=== PATIENT | female | born 1990 | race Caucasian/White ===

== ENCOUNTER → 2016-10-24 | Outpatient (CLI) | payer BC ==
[2016-10-24 16:07] LABS: URINE APPEARANCE CLEAR (CLEAR); URINE BILIRUBIN NEG (NEG); URINE COLOR YELLOW; URINE NITRITE NEG (NEG); URINE SPECIFIC GRAVITY 1.014 (1.000-1.030); UROBILINOGEN NEG (NEG)
[2016-10-24 16:11] LABS: MANUAL MICROSCOPIC REQUIRED? NO; REVIEW REQ? NO
== END | disposition home or self-care (01) ==
LOC: C.LABSPEC 15:52
PROVIDERS: ATTEND Obstetrics & Gynecology
DX: Z34.01 Encounter for supervision of normal first pregnancy, first trimester (principal)

== ENCOUNTER → 2016-10-31 | Outpatient (CLI) | payer BC ==
[2016-10-31 16:41] LABS: BASO % 0.2 %; BASO ABS # 0.02 K/uL (0-0.2); COMPLETE YES; EOS % 1.2 %; HEMATOCRIT 38.4 % (37-47); IG% 0.2 %; LYMPH % 25.4 %; MEAN CELL VOLUME 85.3 fL (80-100); MEAN CORPUSCULAR HEMOGLOBIN 29.3 pg (25-34); MEAN CORPUSCULAR HGB CONC 34.4 g/dl (32-36); MEAN PLATELET VOLUME 9.7 fL (7.4-10.4); MONO % 7.8 %; NEUT % 65.2 %; PLATELET COUNT 336 K/uL (130-400); WHITE BLOOD COUNT 9.84 K/uL (4.8-10.8)
[2016-11-04 01:44] LABS: CHLAMYDIA TRACH RNA*** NOT DETECTED (NOT DETECTED); GC (NEIS GONORRHOEAE)RNA** NOT DETECTED (NOT DETECTED)
== END | disposition home or self-care (01) ==
LOC: C.LAB1850 15:18
PROVIDERS: ATTEND Obstetrics & Gynecology
DX: Z34.01 Encounter for supervision of normal first pregnancy, first trimester (principal)

== ENCOUNTER → 2016-12-31 | Outpatient (CLI) | payer BC ==
[2016-12-31 18:04] LABS: GTGD 50 Grams
[2017-01-05 14:57] LABS: AFP MULTIPLE OF MEDIAN 1.02; AFPTS GESTATIONAL AGE 16.7 WEEKS; AFPTS INSULIN DEP DIABETIC? NO; AFPTS MATERNAL WT 192 LBS; ALPHA-FETOPROTEIN RACE CAUCASIAN=W; ESTRIOL MULTIPLE OF MEDIAN 1.41; HISTORY OF NTD NO; INHIBIN A 118 PG/ML; INHIBIN A MOM 0.79; REPEAT SAMPLE? NO; hCG MULTIPLE OF MEDIAN 1.28
== END | disposition home or self-care (01) ==
LOC: C.LAB1850 16:56
PROVIDERS: ATTEND Obstetrics & Gynecology
DX: Z34.02 Encounter for supervision of normal first pregnancy, second trimester (principal); Z3A.00 Weeks of gestation of pregnancy not specified

== ENCOUNTER → 2017-03-19 | Outpatient (CLI) | payer BC ==
[2017-03-19 18:30] LABS: URINE APPEARANCE CLEAR (CLEAR); URINE BILIRUBIN NEG (NEG); URINE COLOR YELLOW; URINE EPITHELIAL CELL AUTO 20-30 /lpf (0-5); URINE NITRITE NEG (NEG); URINE PH 6.5 (4.5-7.5); UROBILINOGEN NEG (NEG)
[2017-03-19 18:40] LABS: MANUAL MICROSCOPIC REQUIRED? NO; REVIEW REQ? NO
== END | disposition home or self-care (01) ==
LOC: C.LABSPEC 18:00
PROVIDERS: ATTEND Obstetrics & Gynecology
DX: Z34.03 Encounter for supervision of normal first pregnancy, third trimester (principal)

== ENCOUNTER → 2017-03-19 | Outpatient (CLI) | payer BC ==
[2017-03-19 17:42] LABS: HEMATOCRIT 33.9 % (37-47)
[2017-03-19 18:22] LABS: GTGD 50 Grams
== END | disposition home or self-care (01) ==
LOC: C.LAB1850 15:55
PROVIDERS: ATTEND Obstetrics & Gynecology
DX: Z34.03 Encounter for supervision of normal first pregnancy, third trimester (principal)

== ENCOUNTER → 2017-05-15 | Outpatient (CLI) | payer BC | END | disposition home or self-care (01) | LOC: C.LABSPEC 17:41 | PROVIDERS: ATTEND Obstetrics & Gynecology | DX: Z34.03 Encounter for supervision of normal first pregnancy, third trimester (principal) ==

== ENCOUNTER 2017-06-02 12:16 | Inpatient (IN) | payer BC ==
[~2017-06-02] VITALS: Ht 175.3 cm; Wt 106.4 kg
[2017-06-02 13:37] VITALS: Ht 175.3 cm; Wt 106.4 kg
[2017-06-02] MEDS ORDERED: PRENTAB26 PO (13:39)
[2017-06-02] MEDS ORDERED: LACTATED RINGER'S 1000ML 1,000 ML IV PRN (14:43)
[2017-06-02 15:01] LABS: HEMATOCRIT 35.2 % (37-47); HEMOGLOBIN 12.3 g/dL (12.0-16.0); MEAN CELL VOLUME 82.4 fL (80-100); MEAN CORPUSCULAR HEMOGLOBIN 28.8 pg (25-34); MEAN CORPUSCULAR HGB CONC 34.9 g/dl (32-36); MEAN PLATELET VOLUME 9.9 fL (7.4-10.4); PLATELET COUNT 275 K/uL (130-400); RED CELL DISTRIBUTION WIDTH SD 41.7 fL (36.4-46.3); WHITE BLOOD COUNT 12.77 K/uL (4.8-10.8)
[2017-06-02] MEDS ORDERED: BUPIVACAINE 0.25% 30 ML VIAL ONE (15:19)
[2017-06-02] MEDS ORDERED: FENTANYL CITRATE INJ 50 MCG/1 ML 2 ML VIAL ONE (15:19)
[2017-06-02] MEDS ORDERED: EpHEDrine SULFATE INJ 50 MG/ML AMP ONE (15:19)
[2017-06-02] MEDS ORDERED: FENTANYL 2MCG/ML ROPIV 1.25MG/ML 100ML BAG EPI ONE (15:20)
[2017-06-02] MEDS: LACTATED RINGER'S 1000ML 1,000 ML IV SCH ×2 (15:40→16:01)
[2017-06-02] MEDS ORDERED: NALOXONE HCL INJ 1 MG in SODIUM CHLORIDE 0.9% 1000ML 1,000 ML IV PRN ×4 (16:38)
[2017-06-02] MEDS ORDERED: LACTATED RINGER'S 1000ML 500 ML IV PRN ×2 (16:38→17:04)
[2017-06-02] MEDS ORDERED: EpHEDrine SULFATE INJ 50 MG/ML AMP IV PRN (16:45)
[2017-06-02] MEDS ORDERED: PROMETHAZINE HCL INJ 25 MG in SODIUM CHLORIDE 0.9% 50ML 50 ML IV PRN (16:45)
[2017-06-02] MEDS ORDERED: NALBUPHINE HCL INJ 10 MG/ML AMP IV PRN (16:45)
[2017-06-02] MEDS ORDERED: NALOXONE HCL INJ 0.4 MG/1 ML VIAL/CARP IV PRN (16:45)
[2017-06-02] MEDS ORDERED: ONDANSETRON INJ 2 MG/ML 2 ML VIAL IV PRN (16:45)
[2017-06-02] MEDS ORDERED: DiphenhydrAMINE HCL 50 MG/ML VIAL IV PRN (16:45)
[2017-06-02] MEDS ORDERED: OXYTOCIN 30 UNITS/500ML NSS IV PRN (17:15)
[2017-06-02] MEDS: FENTANYL 2MCG/ML ROPIV 1.25MG/ML 100ML BAG EPI PRN (18:58)
[2017-06-03] MEDS: LACTATED RINGER'S 1000ML 1,000 ML IV SCH (00:09)
[2017-06-03] MEDS: FENTANYL 2MCG/ML ROPIV 1.25MG/ML 100ML BAG EPI PRN (00:31)
[2017-06-03] MEDS ORDERED: LANOLIN OINT EXT PRN (02:15)
[2017-06-03] MEDS ORDERED: ACETAMINOPHEN/CODEINE 300/30MG TAB PO PRN ×2 (02:15)
[2017-06-03] MEDS ORDERED: ACETAMINOPHEN 325 MG TAB PO PRN (02:15)
[2017-06-03] MEDS ORDERED: HYDROCORTISONE ACETATE 25 MG SUPP PR PRN (02:15)
[2017-06-03] MEDS ORDERED: SUPERCREAM 0.870 % 15GM JAR EXT PRN (02:15)
[2017-06-03] MEDS ORDERED: BENZOCAINE 20% AER SPR 82.5 GM CAN EXT PRN (02:15)
[2017-06-03] MEDS ORDERED: DIPHTHERIA/TETANUS/PERTUSSIS 0.5 ML SYR/VIAL IM. ONE (02:15)
[2017-06-03] MEDS ORDERED: OXYTOCIN 30 UNITS/500ML NSS IV PRN (02:15)
[2017-06-03 04:30] VITALS: BP 124/64; PULSE 96
--- NOTE | 2017-06-03 04:49 | Anesthesia Procedure Note ---
Anesthesia Epidural Removal Nt Date & Time Jun 03, 2017 at 04:49 Vital Signs Pain Intensity: 0.0 Notes Mental Status: alert / awake / arousable, participated in evaluation Nausea / Vomiting: adequately controlled Pain: adequately controlled Airway Patency, RR, SpO2: stable & adequate BP & HR: stable & adequate Hydration State: stable & adequate Neuraxial Anesthesia: was administered Anesthetic Complications: no major complications apparent, pt satisfied with anesthetic care Epidural: removed without complications, with tip intact
--- NOTE | 2017-06-03 07:30 | DELIVERY SUMMARY ---
DATE OF OPERATION: 06/03/2017 FINDINGS: Viable male with Apgars of 9 and 10. Baby delivered over a midline second degree laceration. Cord gases and cord blood samples obtained. Placenta delivered spontaneously. Laceration was repaired with 4-0 Vicryl in routine fashion. ESTIMATED BLOOD LOSS: 300 mL. LABOR NOTE: The patient is a 26-year-old 1, para 0 with an EDC of 06/12/2017 at 38+ weeks gestational age. She presented to labor and delivery in active labor. The patient states her contractions began at approximately 0700 hours on the 06/02/2017 and increased in intensity. She then ruptured her membranes with vaginal bleeding. The patient was observed on labor and delivery for 2 hours. Cervical change was noted and she was admitted. The patient's course was remarkable for an incidental finding of a small field liver calcification which was stable in size. She had a negative TORCH titer, negative panorama and a negative quad screen. She declined a maternal medicine consult. Laboratory value for the showed a blood type of A positive, antibody negative, rubella immune, hepatitis B negative, normal 1-hour Glucola x2 and a negative third trimester beta strep culture. Upon admission, the patient was 5-6 cm dilated, 80% effaced and -1 station. Tracing was category 1. The patient was uncomfortable. Anesthesia was consulted and epidural was placed. Following placement of the epidural, the patient had artificial rupture of membranes with clear fluid. There had been no cervical change, contractions at its base and Pitocin augmentation was initiated. Over the next 7 hours, the patient progressed to full dilatation, began her second stage, she pushed for approximately an hour delivering a viable male with description as above. Cord was clamped and cut. Cord gases, cord blood samples were obtained. Placenta was delivered spontaneously. Midline laceration repaired with 4-0 Vicryl in routine fashion. Estimated blood loss 300 mL. Sponge and needle count was correct. I attest to the content of the Intraoperative Record and any orders documented therein. Any exception s are noted below.
[2017-06-03 08:37] VITALS: BP 117/78; PULSE 76; TEMP 37.1
[2017-06-03] MEDS: DOCUSATE SODIUM 100 MG CAP PO SCH ×2 (09:18→19:51)
[2017-06-03] MEDS: FERROUS SULFATE 325 MG TAB PO SCH (09:19)
[2017-06-03] MEDS: PRENATAL VITAMIN TAB PO SCH (09:19)
[2017-06-03] MEDS: IBUPROFEN 600 MG TAB PO PRN ×2 (09:23→19:51)
[2017-06-03 13:01] VITALS: BP 124/82; PULSE 76; TEMP 36.8
[2017-06-03 15:40] VITALS: BP 115/74; PULSE 87; TEMP 37; O2SAT 97
[2017-06-03 19:45] VITALS: BP 114/64; PULSE 89; TEMP 37.2; O2SAT 98
[2017-06-04] MEDS: IBUPROFEN 600 MG TAB PO PRN ×4 (00:35→20:17)
[2017-06-04 00:45] VITALS: BP 100/65; PULSE 76; TEMP 36.9
[2017-06-04 06:46] LABS: HEMATOCRIT 32.3 % (37-47)
--- NOTE | 2017-06-04 06:46 | Progress Note ---
Subjective Jun 04, 2017. Subjective conversation w/ patient, conversation w/ family, physical exam Ambulation: limited ambulation Voiding: no voiding problems Passing Gas: Yes Diet Tolerance: Regular Diet Lochia: Moderate Feeding Type: Breast Feeding (having some difficulty) Pain: Reports laceration pain at 5/10 which improves with meds and rest Comment: Pt seen and examined at bedside; no acute events overnight Review of Systems Constitutional: No fever, No chills Respiratory: No cough, No shortness of breath Cardiac: + edema, No chest pain Breast: No breast pain Abdomen: No pain, No nausea, No vomiting Female : No dysuria no headaches or calf pain reported Objective Vital Signs Date Time Temp Pulse Resp B/P (MAP) Pulse Ox O2 Delivery O2 Flow Rate FiO2 06/04/17 00:45 36.9 76 18 100/65 (77) Room Air 06/04/17 00:45 Room Air 06/03/17 19:45 37.2 89 18 114/64 (81) 98 Room Air 06/03/17 15:40 37.0 87 16 115/74 (88) 97 Room Air 06/03/17 15:40 97 Room Air 06/03/17 13:01 36.8 76 16 124/82 (96) 06/03/17 08:37 37.1 76 18 117/78 (91) Room Air 06/03/17 07:45 Room Air Physical Exam General Appearance: WELL-APPEARING, WD/WN, NO APPARENT DISTRESS Respiratory/Chest: chest non-tender, lungs clear, normal breath sounds Cardiovascular: regular rate, rhythm, no murmur Abdomen: normal bowel sounds, non tender, soft Fundus: Firm, Non-Tender, Relation to Umbilicus (4 cm below) Extremities: normal range of motion, non-tender, normal inspection, no calf tenderness, + pedal edema (1+ bilaterally) Laboratory Results Last 24 Hours Test 06/04/17 06:14 Medications Current Inpatient Medications Medications (Trade) Dose Ordered Sig/Crystal Route Start Time Stop Time Status Last Admin Dose Admin Oxytocin (Pitocin IV) 30 units UD PRN IV 06/03/17 02:15 07/03/17 02:14 Benzocaine (Dermoplast Aero Spr) 1 appln PRN PRN EXT 06/03/17 02:15 07/03/17 02:14 Cocaine HCl (Supercream 0.870% Cr) BID PRN EXT 06/03/17 02:15 06/17/17 02:14 Hydrocortisone Acetate (Anusol Hc Supp) 25 mg BID PRN NM 06/03/17 02:15 07/03/17 02:14 Lanolin (Lanolin Oint) PRN PRN EXT 06/03/17 02:15 07/03/17 02:14 Prenat Multivit/ Cylinder Inspector And Tester/Iron/Folic Ac ( Vitamin Tab) 1 tab DAILY PO 06/03/17 08:00 07/03/17 07:59 06/03/17 09:19 1 TAB Ibuprofen (Motrin Tab) 600 mg Q4H PRN PO 06/03/17 02:15 07/03/17 02:14 06/04/17 00:35 600 MG Acetaminophen (Tylenol Tab) 650 mg Q6H PRN PO 06/03/17 02:15 07/03/17 02:14 Acetaminophen/ Codeine Phosphate (Tylenol w/ Codeine #3 Tab) 1 tab Q4H PRN PO 06/03/17 02:15 07/03/17 02:14 Acetaminophen/ Codeine Phosphate (Tylenol w/ Codeine #3 Tab) 2 tab Q4H PRN PO 06/03/17 02:15 07/03/17 02:14 Bisacodyl (Dulcolax Tab) 5 mg 20 PO 06/04/17 20:00 06/04/17 20:01 Docusate Sodium (coLACE CAP) 100 mg BID PO 06/03/17 08:00 07/03/17 07:59 06/03/17 19:51 100 MG Ferrous Sulfate (Feosol Tab) 325 mg DAILY PO 06/03/17 08:00 07/03/17 07:59 06/03/17 09:19 325 MG Assessment and Plan Post- Day#: 1 Continue Routine Care: 26 yo F G1PO PPD 1 s/p Pt doing well clinically Continue routine care, encourae ambulation, breast feeding, first mom education on breast feeding Pain control with Rx prn Discharge likely tomorrow Resident Physician Supervision Note: I was present with Dr. Devine during the history and exam. I discussed the case with the resident and agree with the findings and plan as documented in the note. Any exceptions or clarifications are listed here: PPD#1 doing well. Plans for home tomorrow. Documented By: Mary Kate Webber Resident Tracking Resident Involvement: Resident Care Provided Care Provided: OB Delivery
--- NOTE | 2017-06-04 06:48 | Discharge Instructions ---
Discharge Instructions Date of Service Jun 04, 2017. Admission Reason for Admission: R/O Labor Discharge Discharge Diagnosis / Problem: s/p Discharge Goals Goal(s): Routine recovery after delivery Medications Continue Dispensed Medications: supercream, dermaplast, tucks, lansinoh Activity Recommendations Activity Limitations: per Instructions/Follow-up section . Instructions / Follow-Up Instructions / Follow-Up ACTIVITY RECOMMENDATIONS: * Gradual return to full activity over the next 2-3 weeks. * No lifting - nothing heavier than baby over the next 2-3 weeks. * Do not engage in vigorous exercise, sexual activity or sports until cleared by your physician. * Do not drive or operate any motorized equipment until cleared by your physician. * You may shower/bathe daily. MEDICATIONS: For discomfort or pain, you may use Acetaminophen (Tylenol), Ibuprofen (Advil), or Naproxen (Aleve) following the package directions. For constipation you may use Colace following the package directions. BREAST CARE: If you are not breast feeding: * Wear a supportive bra 24 hours a day for one to two weeks. * Avoid stimulating your breasts and nipples as much as possible during the first few weeks after delivery. * When taking a shower, have the warm water hit your back, not breasts. * When your breasts feel full, apply ice packs. Usually three to four times a day helps ease the discomfort. * Take a mild pain medication (Tylenol / Motrin) when you are uncomfortable. If breast feeding: * Use breast milk to lubricate nipples. Lansinoh cream may be used for sore nipples. You do not need to remove cream prior to breast feeding. If using a different brand of cream, check the label for directions regarding removal of cream prior to nursing. * Wear a supportive bra. * If having problems with breasts or breast feeding, call a oncology consultant or your health care provider. EPISIOTOMY CARE: After delivery, if you have an episiotomy (stitches), the following steps will ease discomfort and aid healing. * For the first 24 hours after delivery, place ice packs next to your episiotomy to help reduce swelling. * After the first 24 hour-period, sitz baths, either portable or in the tub, are suggested. A shower with a shower arm sprayed over the episiotomy may be comforting. * Vivienne care should be done after each voiding and bowel movement. Squirt warm water from a plastic bottle over the perineum (region of the body between the anus and urinary opening) and pat dry. * Use Dermoplast to ease discomfort. Shake container. Campbell directly over the episiotomy. Place a Tucks on a clean sanitary pad next to your episiotomy. SPECIAL CARE INSTRUCTIONS: When you are discharged from the hospital, it is important for you to follow the instructions listed below: * During the first week at home, you should be able to care for yourself and your baby. In addition, the usual light household activities are encouraged. * Limit your activities to the way you feel. Do not try to clean the house or move furniture. Be sensible. * If you actively engage in sports and have done so up until the time of your delivery, you may resume these activities as soon as you feel able. This may take up to one month or even longer. Use good judgment. * Continue to take your vitamins for at least six weeks after the of your baby. * Your diet need not be limited unless you were on a special diet before your delivery. Breast-feeding mothers need around 2500 calories per day and at least 64-80 ounces of fluid per day (8 to 10 glasses). * You should eat foods from the four major food groups. Crash diets or fad diets are to be avoided. Eating lean meats, fresh fruits and vegetables, low-fat dairy products, high fiber foods and a regular exercise program, will help you get back to your pre- weight without putting your health at risk. * Constipation is sometimes a problem after delivery. Take a mild laxative as needed. If breast feeding, Milk of Magnesia is acceptable to use. You may use a suppository or Fleets enema if no episiotomy. * A daily shower or tub bath is suggested. Be sure to thoroughly and gently dry the perineum. * A bloody vaginal discharge will usually continue until around four weeks post . A small amount of bleeding may continue for as long as six weeks. Vaginal discharge changes from the bright red bleeding after delivery to pink then brownish and finally yellowish-pink before becoming white and disappearing. * Bleeding may increase with activity. Your first period may come in 4-8 weeks. If you are breast feeding, your period may be delayed even longer. * Foreman (sex) can begin whenever both you and your partner feel comfortable and do not have any form of genital infection. It is recommended that you wait at least six weeks for internal and external healing to occur. If you have questions, please talk to your health care practitioner. A condom should be used to prevent infection and . * Foreplay, gentle intercourse and lubrication is very important the first several times to prevent pain. A water-based lubricant such as K-Y jelly or Astroglide may be used. * If you have RH negative blood and your baby is RH positive, you will receive RHOGAM by injection prior to discharge. The nurse will give you a card to keep with you that has the date and place that you received RHOGAM after delivery. * During your care, you had a Rubella screen done to check for the presence of rubella antibodies in your blood. If your test was negative, you will receive a Rubella vaccine prior to discharge. This vaccine may cause a fever, soreness at the injection site and flu-like symptoms. If these symptoms persist, notify your health care practitioner. is not advised for one month after a Rubella vaccine. * Verbalizes understanding of car seat law as reviewed with patient nursing. * Car Seat hand-out given and reviewed with patient by nursing. * Shaken baby information reviewed with patient by nursing. Call you doctor if: * Heavy bleeding (saturating several pads an hour) or passing clots the size of your fist. * A fever >101 degrees F (38.3 degrees C) on two occasions four hours apart and /or chills. * Unusual pain in the pelvic or vaginal areas. * "Baby Blues" lasting longer than two weeks. If you have any questions or concerns, call your health care practitioner at . FOLLOW UP VISIT: * Please call the office at to schedule a 6 week examination. It is important you keep this appointment. It is important for you to make arrangements for either yearly or twice yearly check-ups thereafter. Current Hospital Diet Patient's current hospital diet: Regular OB Diet Discharge Diet Recommended Diet: Regular OB Diet Pending Studies Studies pending at discharge: no Medical Emergencies . Who to Call and When: Medical Emergencies: If at any time you feel your situation is an emergency, please call 911 immediately. . Non-Emergent Contact Non-Emergency issues call your: Senior Instructor . . "Provider Documentation" section prepared by Veronica Devine. .
[2017-06-04 07:00] VITALS: BP 104/77; PULSE 82; TEMP 36.7; O2SAT 97
[2017-06-04] MEDS: PRENATAL VITAMIN TAB PO SCH (08:08)
[2017-06-04] MEDS: FERROUS SULFATE 325 MG TAB PO SCH (08:08)
[2017-06-04] MEDS: DOCUSATE SODIUM 100 MG CAP PO SCH ×2 (08:08→20:17)
[2017-06-04 11:34] VITALS: BP 103/72; PULSE 82; TEMP 36.4; O2SAT 96
[2017-06-04 15:55] VITALS: BP 107/83; PULSE 86; O2SAT 99
[2017-06-04] MEDS ORDERED: BISACODYL 5 MG TABEC PO SCH (20:00)
[2017-06-04 23:45] VITALS: BP 120/78; PULSE 81; TEMP 36.7
[2017-06-05] MEDS: IBUPROFEN 600 MG TAB PO PRN ×2 (00:12→07:27)
--- NOTE | 2017-06-05 05:50 | Progress Note ---
Subjective Jun 05, 2017. Subjective conversation w/ patient, physical exam, lab review Voiding: no voiding problems Diet Tolerance: Regular Diet Lochia: Small Feeding Type: Breast Feeding Objective Vital Signs Date Time Temp Pulse Resp B/P (MAP) Pulse Ox O2 Delivery O2 Flow Rate FiO2 06/04/17 23:45 36.7 81 18 120/78 (92) Room Air 06/04/17 23:45 Room Air 06/04/17 15:55 86 18 107/83 (91) 99 06/04/17 15:55 99 Room Air 06/04/17 11:34 36.4 82 20 103/72 (82) 96 Room Air 06/04/17 07:30 Room Air 06/04/17 07:00 36.7 82 18 104/77 (86) 97 Room Air Physical Exam General Appearance: WELL-APPEARING Abdomen: non tender Fundus: Firm Extremities: no calf tenderness Laboratory Results Last 24 Hours Test 06/04/17 06:14 Hemoglobin 11.0 g/dL Hematocrit 32.3 % Assessment and Plan Post- Day#: 2 Continue Routine Care: Patient is doing well meets discharge criteria no extremity pain reviewed instructions
[2017-06-05 07:15] VITALS: BP 121/73; PULSE 83; TEMP 36.7; O2SAT 98
[2017-06-05] MEDS: PRENATAL VITAMIN TAB PO SCH (07:27)
[2017-06-05] MEDS: DOCUSATE SODIUM 100 MG CAP PO SCH (07:27)
[2017-06-05] MEDS: FERROUS SULFATE 325 MG TAB PO SCH (10:08)
[2017-06-05 10:50] VITALS: BP_DIAS 73; PULSE 83; TEMP 36.7
== END 2017-06-05 10:50 | disposition home or self-care (01) | DRG 775 ==
LOC: C.LD 12:16 → C.OPB 12:16 → C.LD 14:44 → C.OBG 06-03 06:43 → EDSTATUS 06-12 12:23
PROVIDERS: ADMIT Obstetrics & Gynecology; ATTEND Obstetrics & Gynecology
PROC: 0KQM0ZZ Repair Perineum Muscle, Open Approach (ICD-10-PCS; principal; 2017-06-03)
PROC: 10E0XZZ Delivery of Products of Conception, External Approach (ICD-10-PCS; principal; 2017-06-03)
DX: O70.1 Second degree perineal laceration during delivery (principal); Z3A.38 38 weeks gestation of pregnancy; Z37.0 Single live birth

== ENCOUNTER 2018-11-08 07:32 | Inpatient (IN) ==
[2018-11-08] MEDS ORDERED: OXYTOCIN 30 UNITS/500 ML BAG IV PRN ×3 (07:42→17:03)
[2018-11-08 08:11] LABS: Mean Corpuscular Volume 82.5 fL (80-100); Mean Platelet Volume 9.5 fL (7.4-10.4); Platelet Count 281 K/uL (130-400); RDW Coefficient of Variation 14.5 % (11.5-14.5); RDW Standard Deviation 43.6 fL (36.4-46.3); Red Blood Count 4.24 M/uL (4.2-5.4); White Blood Count 11.44 K/uL (4.8-10.8)
[2018-11-08 08:12] LABS: Mean Corpuscular Hgb Conc 34.3 g/dL (32-36)
[2018-11-08] MEDS: LACTATED RINGER'S 1,000 ML IV PRN ×2 (08:53→12:45)
--- NOTE | 2018-11-08 08:56 | Labor Progress Brief Note ---
Date of Service November 08, 2018 Subjective 28yo at 41 (+) weeks GA for post dates induction Assessment & Plan (1) Supervision of normal intrauterine in multigravida: - tracing Cat I - Pitocin per induction protocol - anticipate Physical Exam Gastrointestinal (Abdomen): gravid, vtx, (+) fht's, EFW 8 1/2 lbs Genitourinary: Cervix: 3-4/50/-2, soft, posterior Results & Data Vital Signs (Past 12 Hours) Vital Signs Temp Pulse Resp BP 11/08/18 08:31 36.8 C 20 11/08/18 08:30 82 110/70
[2018-11-08] MEDS ORDERED: ePHEDrine sulfate 50 MG/ML AMP ONE (12:10)
[2018-11-08] MEDS ORDERED: BUPIVACAINE 0.25% 30 ML VIAL ONE (12:10)
[2018-11-08] MEDS ORDERED: fentaNYL 2MCG/ML ROPIV 1.25MG/ML 100 ML BAG EPI ONE (12:11)
[2018-11-08] MEDS ORDERED: fentaNYL citrate 100 MCG/2 ML VIAL ONE (12:11)
--- NOTE | 2018-11-08 13:08 | Anesthesiology Consultation ---
Date of Service November 08, 2018 Assessment & Plan Chart Review Chart Review: Acceptable Risk for Labor Epidural Consults Requested none History Height/Weight Height: 5 ft 9 in Weight: 107.501 kg Allergies Allergy/AdvReac Type Severity Reaction Status Date / Time No Known Allergies Allergy Unverified 11/05/18 10:28 Medications Home Medications Medication Instructions Recorded Confirmed Last Taken docusate sodium [Colace] 100 mg PO DAILY 11/08/18 11/08/18 11/08/18 06:00 vit-iron fum-folic ac 1 tab PO DAILY 11/08/18 11/08/18 11/08/18 06:00 [ Vitamin] Active Medications Generic Name Dose Route Start Last Admin Trade Name Freq PRN Reason Stop Dose Admin Lactated Ringer's 1,000 mls @ 125 mls/hr 11/08/18 08:10 11/08/18 12:45 Lr IV 11/10/18 08:09 999 mls/hr .Q8H PRN Administration L&D Protocol Protocol Oxytocin 30 units in 500 mls @ 7 mls/hr 11/08/18 07:42 11/08/18 11:31 Pitocin IV 11/10/18 07:41 0.42 units/hr .Q24H PRN 7 mls/hr Labor Induction/Augmentation Titration Protocol 0.42 UNITS/HR Past Medical History Medical History History of genital warts History of varicella Past Family History Family History Mother Premature births Multiple gestation Father Kidney stones Hypertension Past Surgical History Surgical History S/P wisdom tooth extraction Social History Smoking Status: Never smoker Hx Alcohol Use: No Hx Substance Use: No substance use type: does not use Physical Exam Vital Signs Last Vital Signs Temp 36.8 C 11/08/18 08:31 Pulse 86 11/08/18 13:06 Resp 20 11/08/18 08:31 BP 129/69 11/08/18 13:06 Pulse Ox 99 11/08/18 13:03 Testing Laboratory Results 11/08/18 08:02
[2018-11-08] MEDS ORDERED: NALBUPHINE HCL INJ 10 MG/ML AMP IV PRN (13:13)
[2018-11-08] MEDS ORDERED: NALOXONE HCL 0.4 MG/1 ML VIAL/CARP IV PRN (13:13)
[2018-11-08] MEDS ORDERED: fentaNYL 2MCG/ML ROPIV 1.25MG/ML 100 ML BAG EPI PRN (13:13)
[2018-11-08] MEDS ORDERED: ePHEDrine sulfate 50 MG/ML AMP IV PRN (13:13)
[2018-11-08] MEDS ORDERED: NALOXONE HCL 1 MG in SODIUM CHLORIDE 0.9% 1000ML 1,000 ML IV PRN (13:13)
[2018-11-08] MEDS ORDERED: DiphenhydrAMINE HCL 50 MG/ML VIAL IV PRN (13:13)
--- NOTE | 2018-11-08 14:06 | History & Physical Report ---
Date of Service November 08, 2018 Assessment & Plan (1) : Initiated Pitocin induction. Anesthesia consulted - placed epidural. patient in (or approaching active labor). continue to monitor Present on Admission?: Yes (2) Supervision of normal intrauterine in multigravida: Present on Admission?: Yes (3) Short interval between pregnancies affecting , antepartum: Present on Admission?: Yes History of Present Illness Chief Complaint: Here for induction of labor for post-dates gestation (41 weeks) 28 yo at 41 weeks gestation (dating via LMP) presents to labor and delivery for post-dates induction. No complications with this . Has been attending appointments with MNP. Having regular contractions. + movement. No amniotic fluid loss or vaginal bleeding. OB Labs: Blood Type A Positive 04/01/18 Antibody Screen NEGATIVE 04/01/18 Hemoglobin 11.5 g/dL (12.0-16.0) L 08/11/18 Hematocrit 32.9 % (37-47) L 08/11/18 Mean Corpuscular Volume 85.9 fL (80-100) 04/01/18 Platelet Count 333 K/uL (130-400) 04/01/18 Rubella IgG Antibody Immune (Immune) 04/01/18 Rapid Plasma Reagin Nonreactive (Nonreactive) 04/01/18 Hepatitis B Surface Antigen Neg (Neg) 04/01/18 HIV (1&2) Ab and P24 Ag, 4th Gener Neg (Neg) 04/01/18 Glucose 1 Hour 50 gm Load 147 mg/dl (70-130) H 08/11/18 Glucose 1 Hour 110 mg/dl (70-130) 03/19/17 OB Optional Labs: Chlamydia trachomatis RNA NOT DETECTED (NOT DETECTED) 04/01/18 Neisseria gonorrhoeae RNA NOT DETECTED (NOT DETECTED) 04/01/18 Allergies Allergy/AdvReac Type Severity Reaction Status Date / Time No Known Allergies Allergy Unverified 11/05/18 10:28 Home Medications Home Medications Medication Instructions Recorded Confirmed Type docusate sodium [Colace] 100 mg PO DAILY 11/08/18 11/08/18 History vit-iron fum-folic ac 1 tab PO DAILY 11/08/18 11/08/18 History [ Vitamin] Patient History Medical History History of genital warts History of varicella Surgical History S/P wisdom tooth extraction Family History Mother Premature births Multiple gestation Father Kidney stones Hypertension Social History Preferred Language: Georgian Psych Arnp Required: No Beliefs That Will Affect Care: None marital status: Current Living Situation: Spouse Other Information That Helps Us Care for You: No Feels Safe at Home: Yes Safety Concerns: Feels Safe At This Time Smoking Status: Never smoker Hx Alcohol Use: No Hx Substance Use: No Review of Systems General: No fever, chills, sweats HEENT: + headache no blurry vision Pulm: No shortness of breath, cough, wheeze CV: No chest pain, palpitations, chest pressure. Breast: No breast pain and discharge GI: no constipation/diarrhea, nausea/vomiting : No dysuria, burning with urination Physical Exam Physical Exam: General: Alert, oriented. No acute distress. Cardiac: Regular rate and rhythm, S1 and S2 appreciated. functional murmur appreciated (cresendo-decresendo) 2/6. No rubs/gallops. Respiratory: Clear to auscultation anterior and posteriorly, no wheezes/rales/rhonchi/crackles. No accessory muscle use. Symmetrical chest rise. Abdomen: Soft, nontender, nondistended. Hypoactive bowel sounds throughout. Uterus: gravid. fetus in vertex position. Cervical exam: [5-6cm/100/-2], soft and posterior Lower Extremities: No lower extremity edema. No calf pain on compression. Results & Data Vital Signs (Past 12 Hours) Vital Signs Temp Pulse Resp BP Pulse Ox 11/08/18 13:48 75 96 11/08/18 13:43 66 100 11/08/18 13:39 76 117/68 11/08/18 13:38 70 96 11/08/18 13:33 69 97 11/08/18 13:28 79 97 11/08/18 13:23 73 115/67 100 11/08/18 13:18 74 120/66 100 11/08/18 13:13 74 100 11/08/18 13:12 77 120/66 11/08/18 13:10 76 126/77 08/12/19 13:08 73 127/73 100 11/08/18 13:06 86 129/69 11/08/18 13:04 75 131/68 11/08/18 13:03 88 99 11/08/18 12:58 66 100 11/08/18 12:53 77 100 11/08/18 12:48 82 100 11/08/18 12:08 66 120/61 11/08/18 10:21 68 120/76 11/08/18 08:56 79 120/73 11/08/18 08:31 36.8 C 20 11/08/18 08:30 82 110/70 Monitoring External Monitor minimal variability, 1 10x10 accelerations in 20 min interval, early decelerations present, baseline HR 140s] Supervising Physician Co-Signing Physician Notes Resident Physician Supervision Note: I interviewed and examined the patient. Discussed with Dr. Gomez and agree with findings and plan as documented in the note. Any exceptions or clarifications are listed here: 28yo @ 41 06/03 for IOL for post-dates, uncomplicated . Has had pitocin, epidural, AROM. Anticipate . Documented By: Mary Kate Webber DO Resident Activity Tracking Resident Involvement: Resident Care Provided Care Provided: Adult Hospital Medicine
--- NOTE | 2018-11-08 14:22 | Obstetrical Progress Note ---
Date of Service November 08, 2018 Subjective Comfortable with epidural. Some right-sided pain with ctx. FHT Cat 1 [place] Q 2 SVE 6/100/-1, AROM for clear blood-tinged fluid. Anticipate . Results & Data Vital Signs (Past 12 Hours) Vital Signs Temp Pulse Resp BP Pulse Ox 11/08/18 14:08 72 97 11/08/18 14:03 76 100 11/08/18 13:58 91 H 100 11/08/18 13:55 81 113/70 11/08/18 13:53 76 96 11/08/18 13:48 75 96 11/08/18 13:43 66 100 11/08/18 13:39 76 117/68 11/08/18 13:38 70 96 11/08/18 13:33 69 97 11/08/18 13:28 79 97 11/08/18 13:23 73 115/67 100 11/08/18 13:18 74 120/66 100 11/08/18 13:13 74 100 11/08/18 13:12 77 120/66 11/08/18 13:10 76 126/77 11/08/18 13:08 73 127/73 100 11/08/18 13:06 86 129/69 11/08/18 13:04 75 131/68 11/08/18 13:03 88 99 11/08/18 12:58 66 100 11/08/18 12:53 77 100 11/08/18 12:48 82 100 11/08/18 12:08 66 120/61 11/08/18 10:21 68 120/76 11/08/18 08:56 79 120/73 11/08/18 08:31 36.8 C 20 11/08/18 08:30 82 110/70 PG Care Time/CCT Total # of Minutes Spent Total Time Spent with Patient: Total time spent is greater than 50% in coordination of care (as documented) at patient's floor/unit and/or counseling patient:
--- NOTE | 2018-11-08 15:59 | Obstetrical Progress Note ---
Date of Service November 08, 2018 Subjective Feeling uncomfortable with ctx, not yet feeling urge to push. FHT 130s, mod jane, +accels. +variable and early decels with ctx. [place] Q 2min SVE 8-9/100/+1 Continue to monitor. Anticipate . Results & Data Vital Signs (Past 12 Hours) Vital Signs Temp Pulse Resp BP Pulse Ox 11/08/18 15:54 81 123/74 11/08/18 15:52 79 100 11/08/18 15:48 79 98 11/08/18 15:43 76 100 11/08/18 15:40 71 130/80 11/08/18 15:38 79 100 11/08/18 15:33 78 100 11/08/18 15:28 85 100 11/08/18 15:25 79 134/78 11/08/18 15:23 83 99 11/08/18 15:18 77 97 11/08/18 15:13 77 100 11/08/18 15:09 78 135/74 11/08/18 15:08 73 99 11/08/18 15:03 84 97 11/08/18 14:58 78 98 11/08/18 14:54 75 125/71 11/08/18 14:53 76 100 11/08/18 14:48 70 98 11/08/18 14:43 85 98 11/08/18 14:39 67 125/74 11/08/18 14:38 77 98 11/08/18 14:33 81 94 11/08/18 14:28 72 99 11/08/18 14:25 83 121/67 11/08/18 14:23 80 95 11/08/18 14:18 77 96 11/08/18 14:13 70 99 11/08/18 14:09 80 113/69 11/08/18 14:08 72 97 11/08/18 14:03 76 100 11/08/18 13:58 91 H 100 11/08/18 13:55 81 113/70 11/08/18 13:53 76 96 11/08/18 13:48 75 96 11/08/18 13:43 66 100 11/08/18 13:39 76 117/68 11/08/18 13:38 70 96 11/08/18 13:33 69 97 11/08/18 13:28 79 97 11/08/18 13:24 36.9 C 20 11/08/18 13:23 73 115/67 100 11/08/18 13:18 74 120/66 100 11/08/18 13:13 74 100 11/08/18 13:12 77 120/66 11/08/18 13:10 76 126/77 11/08/18 13:08 73 127/73 100 11/08/18 13:06 86 129/69 11/08/18 13:04 75 131/68 11/08/18 13:03 88 99 11/08/18 12:58 66 100 11/08/18 12:53 77 100 11/08/18 12:48 82 100 11/08/18 12:08 66 120/61 11/08/18 10:21 68 120/76 11/08/18 08:56 79 120/73 11/08/18 08:31 36.8 C 20 11/08/18 08:30 82 110/70 PG Care Time/CCT Total # of Minutes Spent Total Time Spent with Patient: Total time spent is greater than 50% in coordination of care (as documented) at patient's floor/unit and/or counseling patient:
--- NOTE | 2018-11-08 16:40 | Delivery Summary ---
Vaginal Delivery Summary Date of Service November 08, 2018 Vaginal Delivery Summary Vaginal Delivery Summary: Pre-delivery diagnoses: 28yo @ 41 3/, IOL for postdates Post-delivery diagnoses: same Procedure: spontaneous vaginal delivery, repair of 1st degree perineal laceration Surgeon: Mary Kate Webber DO Complications: none Findings: Viable male . Apgars: 8/9. Weight pending, please see nursery records Estimated blood loss: 300ml Description of delivery: The patient progressed to complete with epidural anesthesia. She then began to push. She spontaneously vaginally delivered a viable from the cephalic presentation. The head delivered in ROP position. The anterior shoulder delivered, followed by the posterior shoulder, followed by the body. No nuchal cord was noted. The baby was placed on mother's abdomen and a spontaneous cry was heard. Delayed cord clamping was employed, and the cord was doubly clamped and cut. Cord blood was obtained. The placenta was delivered spontaneously intact with a 3-vessel cord - marginal insertion of cord. The uterus and vagina were swept of clots and debris. IV pitocin was given. The uterus became firm. The cervix, vagina, and perineum were inspected and a 1st degree perineal laceration was noted and repaired in standard fashion with 3-0 vicryl. Excellent hemostasis was observed. The mother and baby are recovering in stable and good condition in the room. Sponge and instrument counts were correct x 2. DO SAPPHIRE Garcia
[2018-11-08] MEDS ORDERED: DIPHTHERIA/TETANUS/PERTUSSIS 0.5 ML SYR/VIAL IM ONE (17:03)
[2018-11-08] MEDS ORDERED: ACETAMINOPHEN 325 MG TAB PO PRN (17:03)
[2018-11-08] MEDS ORDERED: BENZOCAINE 20% AER SPR 82.5 GM CAN EXT PRN (17:03)
[2018-11-08] MEDS ORDERED: HYDROCORTISONE ACETATE 25 MG SUPP PR PRN (17:03)
[2018-11-08] MEDS ORDERED: SUPERCREAM 0.870% 15 GM JAR EXT PRN (17:03)
[2018-11-08] MEDS ORDERED: OXYCODONE/ACETAMINOPHEN 5mg/325mg TAB PO PRN (17:03)
[2018-11-08] MEDS: DOCUSATE SODIUM 100 MG CAP PO SCH (20:28)
[2018-11-09] MEDS: IBUPROFEN 600 MG TAB PO PRN ×3 (02:59→17:12)
--- NOTE | 2018-11-09 06:32 | Obstetrical Progress Note ---
Date of Service <Tamy Gomez MD - Last Filed: 11/09/18 07:04> November 09, 2018 Assessment & Plan <Tamy Gomez MD - Last Filed: 11/09/18 07:04> (1) Status post vaginal delivery: Katerine is a 28 yo on PPD 1 after - GBS - , Blood Type A+, Rubella immune -Vitals reviewed and WNL (Tmax 37.0) -patient is doing clinically well Discharge instructions reviewed. Ready for discharge. - After discharge will have [address] Webber Subjective <Tamy Gomez MD - Last Filed: 11/09/18 07:04> Ambulation: ambulating normally Voiding: no voiding problems Passing Gas:: Yes Diet Tolerance:: regular diet Lochia:: Moderate Feeding Type:: breast feeding examined at bedside; notes increased cramping when Physical Exam <Tamy Gomez MD - Last Filed: 11/09/18 07:04> General Appearance: Alert, oriented. No acute distress. Cardiac: Regular rate and rhythm, S1 and S2 appreciated. No murmurs/rubs/gallops. Respiratory: Clear to auscultation anterior and posteriorly, no wheezes/rales/rhonchi/crackles. No accessory muscle use. Symmetrical chest rise. Abdomen: Soft, nontender, nondistended. Normoactive bowel sounds throughout. Uterus: Uterine fundus firm, palpable 1 cm below umbilicus. Lower Extremities: No lower extremity edema. No calf pain on compression. Results & Data <Tamy Gomez MD - Last Filed: 11/09/18 07:04> Vital Signs (Past 12 Hours) Vital Signs Temp Pulse Pulse Resp BP BP Pulse Ox 11/09/18 03:05 36.8 C 88 16 126/77 98 11/08/18 23:00 36.8 C 84 16 103/66 97 11/08/18 19:25 37 C 84 16 116/70 96 11/08/18 18:37 86 122/66 <Mary Kate Webber DO - Last Filed: 11/09/18 08:25> Co-Signing Physician Notes Resident Physician Supervision Note: I was present with Dr. Gomez during the history and exam. I discussed the case with the resident and agree with the findings and plan as documented in the note. Any exceptions or clarifications are listed here: PPD#1 doing well. Would like discharge today. Instructions reviewed. RTO 6wPP. Documented By: Mary Kate Webber, Resident Activity Tracking <Tamy Gomez MD - Last Filed: 11/09/18 07:04> Resident Involvement: Resident Care Provided Care Provided: Adult Hospital Medicine
[2018-11-09 06:57] LABS: Hemoglobin 11.8 g/dL (12.0-16.0)
[2018-11-09] MEDS ORDERED: PRENATAL VITAMIN 1 TAB PO SCH (08:00)
[2018-11-09] MEDS: DOCUSATE SODIUM 100 MG CAP PO SCH (08:29)
[2018-11-09] MEDS ORDERED: NON-FORMULARY MEDICATION (Prenatal Vit-Iron Fum-Folic Ac [Prenatal Vitamin] 1 TAB) PO SCH (09:00)
[2018-11-09 13:10] VITALS: TEMP 97.9
[2018-11-09 17:00] VITALS: BP 112/73; PULSE 75; O2SAT 98
[2018-11-09] MEDS ORDERED: BISACODYL 5 MG TABEC PO SCH (20:00)
[2018-11-10] MEDS ORDERED: BISACODYL 10 MG SUPP PR PRN
== END 2018-11-09 18:30 | disposition home or self-care (01) | DRG 807 ==
LOC: 4S1 07:32 → 4S2 19:05

== ENCOUNTER 2021-10-18 01:52 | Inpatient (IN) ==
[2021-10-18] MEDS ORDERED: OXYTOCIN 30 UNITS/500 ML BAG IV PRN ×2 (05:07→07:31)
[2021-10-18] MEDS ORDERED: PENICILLIN G POTASSIUM 6 MU in DEXTROSE 5% 250 ML IV STA (05:07)
[2021-10-18] MEDS ORDERED: fentaNYL citrate 100 MCG/2 ML VIAL ONE (05:40)
[2021-10-18] MEDS ORDERED: ePHEDrine sulfate 50 MG/ML AMP ONE (05:40)
[2021-10-18] MEDS ORDERED: SODIUM CHLORIDE 0.9% INJ 10 ML VIAL ONE (05:40)
[2021-10-18] MEDS ORDERED: BUPIVACAINE 0.25% 30 ML VIAL ONE (05:41)
[2021-10-18] MEDS ORDERED: fentaNYL 2MCG/ML ROPIVACAINE 1.25MG/ML 100 ML BAG EPI ONE (05:41)
[2021-10-18] MEDS ORDERED: LIDOCAINE 2%/EPINEPHRINE 1:200,000 20 ML SDV ONE (05:41)
[2021-10-18 05:50] LABS: Hematocrit (blood only) 35.2 % (34.1-44.9); Hemoglobin 11.9 g/dl (12.0-16.0); Mean Corpuscular Hemoglobin 28.1 pg (25.0-34.0); Mean Corpuscular Hgb Conc 33.8 g/dL (32.0-36.0); Mean Platelet Volume 9.9 fL (9.4-12.3); Platelet Count 282 K/uL (130-400); RDW Coefficient of Variation 14.4 % (11.5-14.5); RDW Standard Deviation 42.7 fL (36.4-46.3); Red Blood Count 4.24 M/uL (3.93-5.22); White Blood Count 12.98 K/ul (4.8-10.8)
[2021-10-18] MEDS: LACTATED RINGER'S 1,000 ML IV PRN ×2 (05:54→06:35)
--- NOTE | 2021-10-18 06:26 | History & Physical Report ---
Date of Service October 18, 2021 Assessment & Plan (1) Group B streptococcal infection during : (2) Gestational diabetes mellitus (GDM) affecting : (3) Normal labor: Plan admit for labor. Desires epidural so will place. pcn for gbs positive. Fetus overall category one, rare variable for category two. Anticipate . Monitor sugars. Admission and Anticipated Discharge Date Admission Date: October 18, 2021 History of Present Illness Chief Complaint: contractions Primary Care Provider: Delgado Okeefe DO Patient is a 31yowf with iup at 39 6/7 weeks who presents to labor and delivery complaining of contractions. no lof/vb. +FM. hx of A1gdm, last AC 12%. Sugars have been well controlled. and Delivery Plans Flu shot given 03/11/21 SB GDM wk glucola *Begin monthly AC Us's @24wks GBs Positive *Treat in labor OB Labs: Blood Type A Positive 03/11/21 Antibody Screen NEGATIVE 03/11/21 Hemoglobin 11.3 g/dL (12.0-16.0) L 08/01/21 Hematocrit 34.2 % (37-47) L 08/01/21 Mean Corpuscular Volume 85.8 fL (80-100) 03/11/21 Platelet Count 369 K/uL (130-400) 03/11/21 Rubella IgG Antibody Immune (Immune) 03/11/21 Rapid Plasma Reagin Nonreactive (Nonreactive) 03/11/21 Hepatitis B Surface Antigen Neg (Neg) 03/11/21 Hepatitis C Antibody Neg (Neg) 03/11/21 HIV (1&2) Ab and P24 Ag, 4th Gener Neg (Neg) 03/11/21 Glucose 1 Hour 50 gm Load 142 mg/dl (70-130) H 08/01/21 Maternal Serum Alpha Fetoprotein 26.4 ng/mL 05/06/21 OB Optional Labs: Chlamydia trachomatis RNA NOT DETECTED (NOT DETECTED) 03/11/21 Neisseria gonorrhoeae RNA NOT DETECTED (NOT DETECTED) 03/11/21 Thyroid Stimulating Hormone (TSH) 0.475 uIu/ml (0.300-4.500) 03/26/19 Alpha Fetoprotein Triple Screen SEE NOTE 05/06/21 Alpha Fetoprotein 31.0 NG/ML 12/31/16 low risk panorama afp neg gbs pos Allergies Allergy/AdvReac Type Severity Reaction Status Date / Time No Known Allergies Allergy Verified 10/16/21 13:58 Home Medications Medication Instructions Recorded Confirmed Type docusate sodium 100 mg capsule 100 mg PO DAILY PRN 03/07/21 10/16/21 History (Dulcolax Stool Softener (docusate)) prenat.vits,ta,[id number] 1 tab PO DAILY 03/07/21 10/16/21 History acetone (urine) test (Ketone Urine #50 ea 08/22/21 10/16/21 Rx Test) blood sugar diagnostic (OneTouch #150 ea 08/22/21 10/16/21 Rx Verio test strips) lancets 33 gauge (OneTouch Delica #150 ea 08/22/21 10/16/21 Rx Lancets) Patient History Medical History Family history of basal cell carcinoma (BCC) History of genital warts History of varicella Short interval between pregnancies affecting , antepartum Surgical History S/P wisdom tooth extraction Family History Mother Premature births Multiple gestation Father Kidney stones Hypertension Myocardial infarction Other Diabetes Denies family history of Ovarian cancer Prostate cancer Breast cancer Colorectal cancer Social History Smoking Status: Never smoker Second Hand Exposure: No; Hx Alcohol Use: No Hx Substance Use: No Preferred Language: Kinyarwanda Communication Ability: Effective Visual Impairment: No Limitations Hearing Ability: Normal Supervisor Word Processing Required: No Beliefs That Will Affect Care: None marital status: marital status details: Corey (31) [phone] Current Living Situation: Spouse current occupational status: employed current occupation: Teacher. How many Children do You have: 2 Feels Safe at Home: Yes Childhood Exposure to Second-Hand Smoke: No caffeine: Yes during the past year weight has: remained stable Dental Care, Regularly: Yes Physical Activity Frequency: 1-2 Times per Week Seatbelt Use: always Sunscreen Use: Yes Assistive Devices: None OB History Past Pregnancies Del. Date GA wks Lbr Lgth wt Sex Type del Anes Place Del Prov ? Comment 06/03/17 38 8lb 10oz M Epid [facility] Dr. Bui No 11/08/18 41 7lb 13oz M Epid [facility] Dr. Akbar Sands [employer] History noncontributory Physical Exam Constitutional: WD/WN, vitals as above Gastrointestinal (Abdomen): soft, gravid, nt Psychiatric: A+Ox3, euthymic affect Genitourinary: cx--initially changed to 4-5cm by nursing. toco--q2-4min efm--13-s with mod variability, accels to 160s, rare variable decel Results & Data ([facility]) Vital Signs (Past 12 Hours) Vital Signs Temp Pulse Resp BP O2 Del Method 10/18/21 05:46 36.5 C 16 Room Air 10/18/21 03:37 18 10/18/21 02:09 36.6 C 16 Room Air 10/18/21 02:17 36.6 C 67 16 124/79 10/18/21 05:45 56 L 126/73 10/18/21 02:09 36.6 C 67 16 124/79 Coding Level of Care Code None Diagnoses Group B streptococcal infection during O98.819; B95.1 Gestational diabetes mellitus (GDM) affecting O24.419 Normal labor O80; Z37.9
--- NOTE | 2021-10-18 06:55 | Anesthesiology Consultation ---
Date of Service October 18, 2021 Assessment & Plan Chart Review Chart Review: Acceptable Risk for Labor Epidural Consults Requested none History Height/Weight Height: 5 ft 9 in Weight: 106.594 kg Allergies Allergy/AdvReac Type Severity Reaction Status Date / Time No Known Allergies Allergy Verified 10/16/21 13:58 Medications Home Medications Medication Instructions Recorded Confirmed Last Taken docusate sodium 100 mg capsule 100 mg PO DAILY PRN 03/07/21 10/16/21 Unknown (Dulcolax Stool Softener (docusate)) prenat.vits,ta,[id number] 1 tab PO DAILY 03/07/21 10/16/21 Unknown acetone (urine) test (Ketone Urine #50 ea 08/22/21 10/16/21 Unknown Test) blood sugar diagnostic (OneTouch #150 ea 08/22/21 10/16/21 Unknown Verio test strips) lancets 33 gauge (OneTouch Delica #150 ea 08/22/21 10/16/21 Unknown Lancets) Active Medications Generic Name Dose Route Start Last Admin Trade Name Freq PRN Reason Stop Dose Admin Lactated Ringer's 1,000 mls @ 125 mls/hr 10/18/21 05:07 10/18/21 06:35 Lr IV 10/20/21 05:06 125 mls/hr .Q8H PRN Administration L&D Protocol Protocol Past Medical History Medical History Family history of basal cell carcinoma (BCC) History of genital warts History of varicella Short interval between pregnancies affecting , antepartum Past Family History Family History Mother Premature births Multiple gestation Father Kidney stones Hypertension Myocardial infarction Other Diabetes Denies family history of Ovarian cancer Prostate cancer Breast cancer Colorectal cancer Past Surgical History Surgical History S/P wisdom tooth extraction Social History Smoking Status: Never smoker Hx Alcohol Use: No Hx Substance Use: No substance use type: does not use Physical Exam Vital Signs Last Vital Signs Temp 36.5 C 10/18/21 05:46 Pulse 88 10/18/21 06:52 Resp 16 10/18/21 05:46 BP 148/78 H 10/18/21 06:52 Pulse Ox 100 10/18/21 06:49 O2 Del Method 10/18/21 05:46 Testing Laboratory Results 10/18/21 05:41
[2021-10-18] MEDS ORDERED: ePHEDrine sulfate 50 MG/ML AMP IV PRN (07:01)
[2021-10-18] MEDS ORDERED: NALBUPHINE HCL INJ 10 MG/ML AMP IV PRN (07:01)
[2021-10-18] MEDS ORDERED: NALOXONE HCL 0.4 MG/1 ML VIAL/CARP IV PRN (07:01)
[2021-10-18] MEDS ORDERED: NALOXONE HCL 1 MG in SODIUM CHLORIDE 0.9% 1000ML 1,000 ML IV PRN (07:01)
[2021-10-18] MEDS ORDERED: diphenhydrAMINE 50 MG/ML VIAL IV PRN (07:01)
[2021-10-18] MEDS ORDERED: fentaNYL 2MCG/ML ROPIVACAINE 1.25MG/ML 100 ML BAG EPI PRN (07:01)
--- NOTE | 2021-10-18 07:08 | Labor Progress Brief Note ---
Date of Service October 18, 2021 Subjective got some relief from epidural but feeling pressure. Assessment & Plan (1) Normal labor: (2) Group B streptococcal infection during : Plan dose one pcn given. anticipate soon. fetus overall reassuring. Admission and Anticipated Discharge Date Admission Date: October 18, 2021 Physical Exam Physical Exam: cx--ant lip/c/0 toco--q2-3min efm--110 with mod variabiltiy, variables with contractions. Results & Data ([facility]) Vital Signs (Past 12 Hours) Vital Signs Temp Pulse Resp BP Pulse Ox O2 Del Method 10/18/21 05:46 36.5 C 16 Room Air 10/18/21 03:37 18 10/18/21 02:09 36.6 C 16 Room Air 10/18/21 02:17 36.6 C 67 16 124/79 10/18/21 07:04 100 10/18/21 07:04 111 H 10/18/21 07:03 114 H 10/18/21 07:03 142/71 H 10/18/21 06:59 100 10/18/21 06:59 89 10/18/21 06:57 146/64 H 10/18/21 06:54 100 10/18/21 06:54 88 10/18/21 06:52 88 10/18/21 06:52 148/78 H 10/18/21 06:49 73 100 10/18/21 06:48 71 137/71 10/18/21 06:44 98 10/18/21 06:44 69 10/18/21 06:44 68 129/60 10/18/21 06:43 77 151/99 H 10/18/21 06:39 99 H 100 10/18/21 06:37 95 H 137/81 10/18/21 06:34 71 99 10/18/21 06:32 71 133/85 10/18/21 06:29 76 100 10/18/21 06:24 59 L 100 10/18/21 05:45 56 L 126/73 10/18/21 02:09 36.6 C 67 16 124/79 Coding Level of Care Code None Diagnoses Normal labor O80; Z37.9 Group B streptococcal infection during O98.819; B95.1
[2021-10-18] MEDS ORDERED: bisacodyL 10 MG SUPP PR PRN (07:31)
[2021-10-18] MEDS ORDERED: IBUPROFEN 600 MG TAB PO PRN (07:31)
[2021-10-18] MEDS ORDERED: ACETAMINOPHEN 325 MG TAB PO PRN (07:31)
[2021-10-18] MEDS ORDERED: HYDROCORTISONE ACETATE 25 MG SUPP PR PRN (07:31)
[2021-10-18] MEDS ORDERED: DIPHTHERIA/TETANUS/PERTUSSIS 0.5 ML SYR/VIAL IM ONE (07:31)
[2021-10-18] MEDS ORDERED: oxyCODONE/ACETAMINOPHEN 5mg/325mg TAB PO PRN (07:31)
[2021-10-18] MEDS ORDERED: BENZOCAINE 20% AER SPR 82.5 GM CAN EXT PRN (07:31)
--- NOTE | 2021-10-18 07:39 | Delivery Summary ---
Vaginal Delivery Summary Date of Service October 18, 2021 Vaginal Delivery Summary and 1st Degree LAC Pre-operative Diagnosis: at 39 weeks active labor gbs positive A1gdm Post-operative Diagnosis: same Procedure: epidural pcn prophylaxis arom first degree laceration and repair EBL: 100cc Anesthesia: epidural Procedure: The patient presented to labor and delivery and after walking made cervical change. She then was admitted, got pcn, and epidural. The quickly found to be c/c/+1. arom done for clear fluid. The patient pushed for 3 contractions to deliver a viable female infant in rop position. The was then delivered without difficulty. The baby was vigorous. The nose and mouth were again bulb suctioned and the was placed in the maternal abdomen for drying and attention. Cord was clamped and cut at at one minute of life. Cord blood and segment obtained. Placenta delivered spontaneous, intact with a three vessel cord. Cervix/sulci/rectum were intact. A first degree perineal laceration was repaired in the normal standard fashion. Hemostasis obtained with dilute pitocin and fundal massage. Apgars were 8/9. Mother and baby doing well at the end of the delivery. [facility] [place]aginal Delivery Charge Delivery Type Details: and 1st Degree LAC
[2021-10-18] MEDS ORDERED: PENICILLIN G POTASSIUM 3 MU in DEXTROSE 5% 100 ML IV PRN (08:07)
[2021-10-18] MEDS: DOCUSATE SODIUM 100 MG CAP PO SCH ×2 (08:40→20:53)
[2021-10-18] MEDS: PRENATAL VITAMIN 1 TAB PO SCH (08:40)
--- NOTE | 2021-10-18 10:23 | Anesthesia Procedure Note ---
Date of Service October 18, 2021 Anesthesia Post Epidural Note Vital Signs Vital Signs: Temp Pulse Resp BP Pulse Ox O2 Del Method 36.7 C 70 18 133/68 88 L 10/18/21 09:20 10/18/21 09:20 10/18/21 09:20 10/18/21 09:20 10/18/21 07:20 10/18/21 07:18 Pain Intensity Bilateral Lower Abdomen: Pain Intensity: 0 Notes Mental Status: alert / awake / arousable and participated in evaluation Nausea / Vomiting: adequately controlled Pain: adequately controlled Airway Patency, RR, SpO2: stable & adequate BP & HR: stable & adequate Hydration State: stable & adequate Neuraxial Anesthesia: was administered and sensory block is resolving Anesthetic Complications: no major complications apparent and Pt Satisfied with anesthetic care Epidural: Removed without complications and With tip intact
--- NOTE | 2021-10-19 06:06 | Obstetrical Progress Note ---
Date of Service <Leonor Nava - Last Filed: 10/19/21 06:42> October 19, 2021 Assessment & Plan <Leonor Nava - Last Filed: 10/19/21 06:42> (1) Status post vaginal delivery: Plan continue OOB, ambulation, diet as tolerated <Ezio Fay MD - Last Filed: 10/19/21 08:07> (1) Status post vaginal delivery: Subjective <Leonor Nava - Last Filed: 10/19/21 06:42> Katerine is a 31 y/o female who is now PPD # 1 following vaginal delivery at 39 6/7 weeks. Reports feeling well overall this morning. Mild ab dominal cramping & pain well managed on analgesics. Voiding. Tolerating meals overnight and able to ambulate some. Is passing gas and had a bowel movements. Some persistent lochia with some improvement this morning. Breast feeding. Review of Systems Denies fever, chills, sweats Denies shortness of breath, difficulty breathing, chest pain, palpitations, chest pressure. Denies breast pain. Denies dysuria. Denies headache or changes in vision. Physical Exam <Leonor Nava - Last Filed: 10/19/21 06:42> General: Alert, oriented. No acute distress. Cardiac: Regular rate and rhythm, no murmurs/rubs/gallops. Respiratory: Clear to auscultation bilaterally a/p, no wheezes/rales/rhonchi. No increased work of breathing. Symmetrical chest rise. No respiratory distress. Abdomen: Soft, nontender, nondistended. Bowel sounds present. Uterus: Uterine fundus firm, palpable 2 cm below umbilicus. Lower Extremities: No lower extremity edema or swelling. No deep calf pain. [place]'s negative bilaterally. Results & Data ([facility]) <Leonor NavaDO - Last Filed: 10/19/21 06:42> Vital Signs (Past 12 Hours) Vital Signs Temp Pulse Resp BP Pulse Ox O2 Del Method 10/19/21 04:25 36.8 C 65 18 103/65 98 Room Air 10/18/21 23:55 Room Air 10/18/21 23:55 36.6 C 71 18 103/62 99 Room Air 10/18/21 20:45 36.9 C 66 18 128/83 99 Room Air <Ezio Fay MD - Last Filed: 10/19/21 08:07> Co-Signing Physician Notes Patient seen with resident agree with the above findings and plan. Doing well. Stable for discharge.
[2021-10-19] MEDS: PRENATAL VITAMIN 1 TAB PO SCH (07:47)
[2021-10-19] MEDS: DOCUSATE SODIUM 100 MG CAP PO SCH (07:47)
[2021-10-19 08:19] LABS: Hematocrit (blood only) 36.7 % (34.1-44.9)
[2021-10-19] MEDS ORDERED: bisacodyL 5 MG TABEC PO SCH (20:00)
== END 2021-10-19 15:00 | disposition home or self-care (01) | DRG 807 ==
LOC: OPB 01:52 → 4S1 01:55 → 4E2 10:01

== ENCOUNTER 2024-04-22 06:26 | Inpatient (IN) ==
[2024-04-22] MEDS ORDERED: CALCIUM CARBONATE 500 MG CHEWABLE TAB PO PRN (06:55)
[2024-04-22] MEDS ORDERED: LIDOCAINE 1% LOCAL 20 ML VIAL INFIL PRN (06:55)
[2024-04-22] MEDS ORDERED: ACETAMINOPHEN 325 MG TAB PO PRN (06:55)
[2024-04-22] MEDS: SODIUM CHLORIDE 0.9% 1,000 ML IV SCH (07:15)
[2024-04-22] MEDS: PENICILLIN GK 6 MU in SODIUM CHLORIDE 0.9% 250 ML IV ONE (07:25)
[2024-04-22 07:46] LABS: Hematocrit (blood only) 34.5 % (37.0-47.0); Hemoglobin 11.9 g/dl (12.0-16.0); Mean Corpuscular Hgb Conc 34.5 g/dL (32.0-36.0); Mean Corpuscular Volume 84.1 fL (80.0-100.0); Mean Platelet Volume 10.1 fL (9.4-12.4); Platelet Count 247 K/uL (130-400); RDW Coefficient of Variation 13.3 % (11.5-14.5); RDW Standard Deviation 40.9 fL (36.4-46.3)
[2024-04-22] MEDS ORDERED: ePHEDrine sulfate 50 MG/ML AMP IV PRN (07:54)
[2024-04-22] MEDS ORDERED: ROPIVACAINE 0.5% PF 5 MG/ML 20 ML VIAL EPI PRN (07:54)
[2024-04-22] MEDS ORDERED: fentANYL 2 MCG/ML BUPIVacaine 0.125%-NSS 100ML BAG EPI PRN (07:54)
[2024-04-22] MEDS ORDERED: BUPIVACAINE 0.25% PF 30 ML VIAL EPI PRN (07:54)
[2024-04-22] MEDS ORDERED: NALBUPHINE HCL INJ 10 MG/ML AMP IV PRN (07:54)
[2024-04-22] MEDS ORDERED: diphenhydrAMINE 50 MG/ML VIAL IV PRN (07:54)
[2024-04-22] MEDS ORDERED: NALOXONE HCL 0.4 MG/1 ML VIAL/CARP IV PRN (07:54)
[2024-04-22] MEDS ORDERED: fentaNYL citrate PF 100 MCG/2 ML VIAL EPI PRN (07:54)
[2024-04-22] MEDS ORDERED: LIDOCAINE 2% MPF LOCAL 5 ML VIAL EPI PRN (07:54)
[2024-04-22] MEDS ORDERED: NALOXONE HCL 1 MG in SODIUM CHLORIDE 0.9% 1,000 ML IV PRN (07:54)
[2024-04-22] MEDS ORDERED: SODIUM CHLORIDE 0.9% PF INJ 10 ML VIAL EPI PRN (07:54)
--- NOTE | 2024-04-22 07:56 | Anesthesiology Consultation ---
Date of Service April 22, 2024 Assessment & Plan Chart Review Chart Review: Patient NOT seen in Pre Admission Testing and Acceptable Risk for Labor Epidural Consults Requested none ASA ASA2 Proposed Anesthesia Anesthesia Type: Labor Epidural Risk / Benefits Reviewed With: PT / POA / Parent / Guardian, Accepts Plan and Informed Consent Obtained History Height/Weight Height: 5 ft 9 in Weight: 104.326 kg Allergies Allergy/AdvReac Type Severity Reaction Status Date / Time No Known Drug Allergies Allergy Verified 04/18/24 15:52 Medications Home Medications Medication Instructions Recorded Confirmed Last Taken docusate sodium [Stool Softener] 2 tab PO DAILY 10/09/23 04/22/24 04/22/24 [id number] 1 tab PO DAILY 10/09/23 04/22/24 04/22/24 [ Plus] Active Medications Generic Name Dose Route Start Last Admin Trade Name Freq PRN Reason Stop Dose Admin Penicillin G Potassium 6 mu/ 262 mls @ 250 mls/hr 04/22/24 07:15 04/22/24 07:25 Sodium Chloride IV 04/22/24 08:17 250 mls/hr 0715 ONE Administration NPO Date Last Intake of Fluids: 04/22/24 Date Last Intake of Solids: 04/21/24 Time Last Intake of Solids: 18:00 Past Medical History Medical History GERD (gastroesophageal reflux disease) Restless leg syndrome Family history of gastroesophageal reflux disease Group B streptococcal infection during Gestational diabetes mellitus (GDM) affecting Family history of basal cell carcinoma (BCC) History of varicella History of genital warts Short interval between pregnancies affecting , antepartum Exercise / Class Metabolic Activity 1 > 8 Run/Swim/Ski/Tennis Past Family History Family History Mother Premature births Multiple gestation Father Kidney stones Hypertension Myocardial infarction Other Diabetes Denies family history of Ovarian cancer Prostate cancer Breast cancer Colorectal cancer Past Surgical History Surgical History S/P wisdom tooth extraction Past Anesthesia History No Hx of Anesthesia Complications and No Family Hx of Anesthesia Complications History of PONV No Hx of PONV and No Hx of Motion Sickness Social History Smoking Status: Never smoker Do You Dip or Chew Tobacco: No Hx Alcohol Use: No Hx Substance Use: No substance use type: does not use Review of Systems ROS Unobtainable: All systems reviewed & are unremarkable except as noted in HPI & below Physical Exam Vital Signs Last Vital Signs Temp 37.0 C 04/22/24 06:42 Pulse 78 04/22/24 07:52 Resp 18 04/22/24 06:42 BP 132/79 04/22/24 07:10 Pulse Ox 100 04/22/24 07:52 ENMT Mouth: no TMJ abnormality Thyromental Distance: > or= 3.5 Finger Breadths Mallampati Class: II Neck normal visual inspection and trachea midline; neck extension not limited Respiratory normal respiratory effort Auscultation: lungs clear to auscultation bilaterally Cardiovascular Rate/Rhythm: regular rate and regular rhythm Heart Sounds: no murmur Musculoskeletal Spine: normal cervical ROM Extremities: full ROM of extremities Neurologic moves all extremities Psychiatric Orientation: alert and oriented x 3 Testing Laboratory Results 04/22/24 07:30
[2024-04-22] MEDS: BUPIVACAINE 0.25% PF 30 ML VIAL ONE (08:12)
[2024-04-22] MEDS: fentaNYL citrate PF 100 MCG/2 ML VIAL ONE (08:12)
[2024-04-22] MEDS: LIDOCAINE 2%/EPINEPHRINE 1:200,000 20 ML PF ONE (08:12)
[2024-04-22] MEDS: fentANYL 2 MCG/ML BUPIVacaine 0.125%-NSS 100ML BAG ONE (08:13)
[2024-04-22] MEDS: SODIUM CHLORIDE 0.9% PF INJ 10 ML VIAL ONE (08:26)
[2024-04-22] MEDS: ePHEDrine sulfate 50 MG/ML AMP ONE (08:26)
--- NOTE | 2024-04-22 09:08 | History & Physical Report ---
Date of Service April 22, 2024 Assessment & Plan (1) Gestational diabetes mellitus (GDM) affecting , antepartum: Plan: multip in active labor at 37 weeks start GBS prophylaxis requesting epidural analgesia anticipate vaginal delivery Admission and Anticipated Discharge Date Admission Date: April 22, 2024 History of Present Illness Primary Care Provider: Delgado Okeefe DO Patient is a 33 yo female EDC 05/13/24 who presents at 37 weeks in active labor. +blood show (-) SPROM. GBS-positive. complicated by diet controlled GDM. testing has been reassuring Allergies Allergy/AdvReac Type Severity Reaction Status Date / Time No Known Drug Allergies Allergy Verified 04/18/24 15:52 Home Medications Medication Instructions Recorded Confirmed Type docusate sodium [Stool Softener] 2 tab PO DAILY 10/09/23 04/22/24 History [id number] 1 tab PO DAILY 10/09/23 04/22/24 History [ Plus] Patient History Medical History GERD (gastroesophageal reflux disease) Restless leg syndrome Family history of gastroesophageal reflux disease Group B streptococcal infection during Gestational diabetes mellitus (GDM) affecting Family history of basal cell carcinoma (BCC) History of varicella History of genital warts Short interval between pregnancies affecting , antepartum Surgical History S/P wisdom tooth extraction Family History Mother Premature births Multiple gestation Father Kidney stones Hypertension Myocardial infarction Other Diabetes Denies family history of Ovarian cancer Prostate cancer Breast cancer Colorectal cancer Social History Smoking Status: Never smoker Second Hand Exposure: No; Do You Dip or Chew Tobacco: No; Hx Alcohol Use: No Hx Substance Use: No Preferred Language: Maldivian Communication Ability: Effective Visual Impairment: No Limitations Hearing Ability: Normal Marketing Communications Assistant Required: Voice Beliefs That Will Affect Care: None marital status: marital status details: Corey (33) [phone] Current Living Situation: Spouse and Family Current Living Situation Comment: and three kids, 1 dog current occupational status: unemployed current occupation: Homemaker How many Children do You have: 3 Other Information That Helps Us Care for You: No Feels Safe at Home: Yes Safety Concerns: Feels Safe At This Time Childhood Exposure to Second-Hand Smoke: No Diet: regular caffeine: Yes during the past year weight has: remained stable Dental Care, Regularly: Yes Physical Activity Frequency: 1-2 Times per Week Seatbelt Use: always Sunscreen Use: Yes Assistive Devices: None Review of Systems All systems reviewed & are unremarkable except as noted in HPI & below Physical Exam Constitutional: WD/WN, vitals as above Psychiatric: A+Ox3, euthymic affect Genitourinary: OB Exam Abdomen: + fundal height (term) and + vertex (by ultrasound 4 days ago) Manual OB Exam: + cervical dilation (4-5cm/100/bulging membranes per nurse exam) OB Exam Monitor Tracing: + external FHT monitor used, + external uterine monitor used, + category I and + normal FHT variability Results & Data Vital Signs (Past 12 Hours) Vital Signs Temp Pulse Resp BP Pulse Ox 04/22/24 09:02 77 112/65 04/22/24 08:57 71 96 04/22/24 08:52 76 97 04/22/24 08:47 80 119/68 98 04/22/24 08:43 74 115/62 04/22/24 08:42 74 98 04/22/24 08:37 80 114/69 98 04/22/24 08:34 81 136/80 04/22/24 08:32 79 96 04/22/24 08:27 78 99 04/22/24 08:26 81 121/74 04/22/24 08:24 78 122/73 04/22/24 08:22 97 04/22/24 08:22 79 04/22/24 08:22 76 120/71 04/22/24 08:20 77 120/69 04/22/24 08:18 112/67 04/22/24 08:17 73 98 04/22/24 08:16 81 102/60 04/22/24 08:14 82 109/64 04/22/24 08:12 97 04/22/24 08:12 70 04/22/24 08:12 71 112/69 04/22/24 08:10 138/88 04/22/24 08:07 76 135/81 99 04/22/24 08:05 78 18 138/86 04/22/24 08:02 74 99 04/22/24 07:57 70 98 04/22/24 07:52 78 100 04/22/24 07:47 146 H 99 04/22/24 07:41 100 04/22/24 07:41 83 04/22/24 07:41 84 93 04/22/24 07:36 79 99 04/22/24 07:31 76 100 04/22/24 07:30 20 04/22/24 07:30 97.9 F 20 04/22/24 07:26 75 99 04/22/24 07:23 72 94 04/22/24 07:21 81 100 04/22/24 07:16 74 97 04/22/24 07:10 80 132/79 04/22/24 06:42 98.6 F 18 04/22/24 06:39 82 130/79 Coding Level of Care Code 06168 INT INP/OBS CARE MIN Diagnoses Gestational diabetes mellitus (GDM) affecting , antepartum O24.419
[2024-04-22] MEDS: LIDOCAINE 2%/EPINEPHRINE 1:200,000 20 ML PF EPI STA (09:29)
[2024-04-22] MEDS: BUPIVACAINE 0.25% PF 30 ML VIAL EPI STA (09:29)
[2024-04-22] MEDS: fentaNYL citrate PF 100 MCG/2 ML VIAL EPI STA (09:29)
[2024-04-22] MEDS: SODIUM CHLORIDE 0.9% PF INJ 10 ML VIAL EPI STA (09:29)
[2024-04-22] MEDS: PENICILLIN GK 3 MU in DEXTROSE 5% 100 ML IV PRN (11:13)
[2024-04-22] MEDS: OXYTOCIN 30 UNITS/NSS 30 UNITS/500 ML BAG IV PRN (11:35)
--- NOTE | 2024-04-22 11:46 | Delivery Summary ---
Vaginal Delivery Summary Date of Service April 22, 2024 Vaginal Delivery Summary and 1st Degree LAC Spontaneous vaginal delivery the patient arrived in active labor had been in surgery in the morning but when he came up she was fully dilated and had the urge to push after pushing over 1 contraction delivered a baby in occiput anterior position fluid was clear there was no nuchal cord easy delivery no excessive force live vigorous male Cord clamped and cut cord blood obt ained placenta removed by traction IV Pitocin started uterine tone improved small first-degree tear repaired with 3-0 Vicryl sponge and instrument counts correct estimated blood loss specifically quantitative blood loss 250 mL [facility] Vaginal Delivery Charge Delivery Type Details: and 1st Degree LAC
[2024-04-22] MEDS ORDERED: OXYTOCIN 30 UNITS/NSS 30 UNITS/500 ML BAG IV PRN (12:15)
[2024-04-22] MEDS ORDERED: HYDROCORTISONE ACETATE 25 MG SUPP PR PRN (12:15)
[2024-04-22] MEDS ORDERED: bisacodyL 10 MG SUPP PR PRN (12:15)
--- NOTE | 2024-04-22 12:42 | Anesthesia Procedure Note ---
Date of Service April 22, 2024 Anesthesia Post Epidural Note Vital Signs Vital Signs: Temp Pulse Resp BP Pulse Ox 36.7 C 69 20 113/64 87 L 04/22/24 11:00 04/22/24 12:32 04/22/24 12:32 04/22/24 12:32 04/22/24 11:32 Pain Intensity Bilateral Abdomen: Pain Intensity: 0 Notes Mental Status: alert / awake / arousable and participated in evaluation Nausea / Vomiting: adequately controlled Pain: adequately controlled Airway Patency, RR, SpO2: stable & adequate BP & HR: stable & adequate Hydration State: stable & adequate Neuraxial Anesthesia: was administered and sensory block is resolving Anesthetic Complications: no major complications apparent Epidural: Removed without complications and With tip intact
[2024-04-22] MEDS: DIPHTHER/TETAN/PERTUS Vaccine (Tdap, Adol/Adult) 0.5mL IM ONE (12:48)
[2024-04-22] MEDS: BENZOCAINE 20% SPRY 85 APPLN/85 GM CAN EXT PRN (14:21)
[2024-04-22] MEDS: ACETAMINOPHEN 325 MG TAB PO PRN (16:42)
[2024-04-22] MEDS: DOCUSATE SODIUM 100 MG CAP PO SCH (20:37)
[2024-04-22] MEDS: IBUPROFEN 600 MG TAB PO PRN (20:37)
[2024-04-23 03:11] VITALS: O2SAT 97
[2024-04-23 06:43] LABS: Hematocrit (blood only) 32.7 % (37.0-47.0); Hemoglobin 11.2 g/dl (12.0-16.0); Mean Corpuscular Hemoglobin 28.6 pg (25.0-34.0); Mean Corpuscular Hgb Conc 34.3 g/dL (32.0-36.0); Mean Corpuscular Volume 83.6 fL (80.0-100.0); Mean Platelet Volume 10.1 fL (9.4-12.4); Platelet Count 223 K/uL (130-400); RDW Coefficient of Variation 13.9 % (11.5-14.5); RDW Standard Deviation 42.3 fL (36.4-46.3); Red Blood Count 3.91 M/uL (4.20-5.40)
--- NOTE | 2024-04-23 07:54 | Obstetrical Progress Note ---
Date of Service April 23, 2024 Assessment & Plan (1) Encounter for assessment: Plan: Patient is PPD 1 s/p and doing well - Eating well, voiding well, ambulating well - vitals reviewed and within normal limits - pain well controlled with analgesics - OOB, ambulation, diet progression as tolerated - Blood type: A+, GBS pos, rubella immune - Plan to discharge today - After discharge, 6 week follow up with OBGYN Admission and Anticipated Discharge Date Admission Date: April 22, 2024 Supervising Physician Co-Signing Physician Notes Resident Physician Supervision Note: I was present with Dr. Gillespie during the history and exam. I discussed the case with the resident and agree with the findings and plan as documented in the note. Any exceptions or clarifications are listed here: [None] Documented By: Chitra Matos MD, FACOG Subjective 33 yo post- day 1 s/p Ambulation: ambulating normally Voiding: no voiding problems Passing Gas:: Yes Diet Tolerance:: regular diet Lochia:: Small Feeding Type:: breast feeding Current Pain Level:3/10 Resting comfortably this AM in NAD. Denies TERESA, CP, SOB, N/V/D, LE pain/swelling. Physical Exam Physical Exam: General: patient resting comfortably, NAD, non-toxic in appearance, answers questions appropriately. Skin: warm, dry, intact HEENT: NC/AT, anicteric sclera, conjunctiva without injection, moist mucus membranes. Heart: +S1/S2, regular, no m/r/g Lungs: equal air entry bilaterally, no rales/rhonchi/wheezes Abd: +BS, soft, NT/ND, uterine fundus firm at umbilicus Ext: warm, no clubbing/cyanosis or edema, [place]'s neg. Neuro: nonfocal, speech intact, no facial droop, moving all extremities. Results & Data Vital Signs (Past 12 Hours) Vital Signs Temp Pulse Resp BP Pulse Ox O2 Del Method 04/23/24 03:10 36.8 C 74 16 100/64 97 Room Air 04/22/24 22:49 37 C 83 16 120/71 96 Room Air Resident Activity Tracking Resident Involvement: Resident Care Provided Care Provided: OB Delivery
[2024-04-23] MEDS: PRENATAL VITAMIN 1 TAB PO SCH (08:40)
[2024-04-23 09:15] VITALS: BP 122/81; PULSE 78; RESP 18; TEMP 97.7
[2024-04-23] MEDS ORDERED: bisacodyL 5 MG TABEC PO SCH (20:00)
== END 2024-04-23 14:40 | disposition home or self-care (01) | DRG 807 ==
LOC: OPB 06:26 → 4S1 06:28 → 4E2 15:40